=== PATIENT | male | born 1945 | race African-American/Black ===

== ENCOUNTER 2018-03-13 14:17 | Inpatient (IN) | payer OTHER ==
[2018-03-13 17:14] VITALS: BMI 20.8
--- NOTE | 2018-03-13 19:54 | HP ---
COWS - Scale Resting Pulse: 1= MD 81-100 Sweatin= Chills/Flushing Restless Observation: 1= Difficult to Sit Still Pupil Size: 0= Normal to Room Light Bone or Joint Aches: 1= Mild Discomfort Runny Nose/ Eye Tearin= Runny Nose/Eyes GI Upset > 30mins: 2= Nausea/Diarrhea Tremor Observation: 1= Tremor [place], Not Seen Yawning Observation: 1= 1-2x During Session Anxiety or Irritability: 2=Irritable/Anxious Goose Flesh Skin: 3=Piloerection COWS Score: 15 CIWA Score - CIWA Score Nausea/Vomitin-Mild Nausea/No Vomiting Muscle Tremors: 2 Anxiety: 3 Agitation: 4-Moderately Restless Paroxysmal Sweats: 2 Orientation: 1-Uncertain about Date Tacttile Disturbances: 1-Very Mild Itch/Numbness (knuckles and hands) Auditory Disturbances: 0-None Visual Disturbances: 0-None Headache: 2-Mild CIWA-Ar Total Score: 16 Admission [facility] - HPI Chief Complaint: " I am feeling sick , I am here for detox" Allergies/Adverse Reactions: Allergies Allergy/AdvReac Type Severity Reaction Status Date / Time No Known Allergies Allergy Verified 03/13/18 19:58 History of Present Illness: 72 yo male with hx of nicotine, heroin , and alcohol dependence is here seeking detox. PMHX: COPD, anxiety, insomnia. Denies suicidal / homicidal ideation or suicide attempts . Longest period of sobriety 13 months. Last detox [facility] about one year ago. Patient went to [facility] today and no bed were available Exam Limitations: No Limitations - Ebola screening Have you traveled outside of the country in the last 21 days: No Have you had contact with anyone from an Ebola affected area: No Have you been sick,other than usual withdrawal symptoms: No Do you have a fever: No - Review of Systems Constitutional: Chills, Loss of Appetite, Changes in sleep, Unintentional Wgt. Loss (14 lbs over the past 4 months) EENT: reports: Other (glaucoma) Respiratory: reports: Cough, SOB with Exertion (can't go up steps , dx of Emphysema) Cardiac: reports: Chest Tightness (unpredictable) GI: reports: Constipated (lat BVM x 3 days ago), Nausea, Poor Appetite, Poor Fluid Intake : reports: No Symptoms Reported Musculoskeletal: reports: Back Pain (rates pain 7/10) Neuro: reports: Headache, Numbness (both nads and knuckles), Tingling Endocrine: reports: Increased Thirst Hematology: reports: No Symptoms Reported Psychiatric: reports: Orientated x3, Agitated Other Systems: Reviewed and Negative Patient History - Patient Medical History Hx Anemia: No Hx Asthma: No Hx Chronic Obstructive Pulmonary Disease (COPD): Yes (Emphysema MDI ) Hx Cancer: No Hx Cardiac Disorders: No Hx Congestive Heart Failure: No Hx Hypertension: No Hx Hypercholesterolemia: No Hx Pacemaker: No HX Cerebrovascular Accident: No Hx Seizures: No Hx Dementia: No Hx Diabetes: No Hx Gastrointestinal Disorders: No Hx Liver Disease: No Hx Genitourinary Disorders: No Hx Sexually Transmitted Disorders: No Hx Renal Disease (ESRD): No Hx Thyroid Disease: No Hx Human Immunodeficiency Virus (HIV): No (negative, last tested 6 months ago, declines testing today ) Hx Hepatitis C: No Hx Depression: No Hx Suicide Attempt: No Hx Bipolar Disorder: No Hx Schizophrenia: No - Patient Surgical History Past Surgical History: No Hx Neurologic Surgery: No Hx Cataract Extraction: No Hx Cardiac Surgery: No Hx Lung Surgery: No Hx Breast Surgery: No Hx Breast Biopsy: No Hx Abdominal Surgery: No Hx Appendectomy: No Hx Cholecystectomy: No Hx Genitourinary Surgery: No Hx Section: No Hx Orthopedic Surgery: No Hx Hysterectomy: No Anesthesia Reaction: No - PPD History Previous Implant?: Yes Documented Results: Negative w/o proof PPD to be Administered?: Yes - Reproductive History Patient is a Female of Child Bearing Age (11 -55 yrs old): No - Smoking Cessation Smoking history: Current every day smoker Have you smoked in the past 12 months: Yes Aproximately how many cigarettes per day: 5 Hx Chewing Tobacco Use: No Initiated information on smoking cessation: Yes 'Breaking Loose' booklet given: 03/13/18 - Substance & Tx. History Hx Alcohol Use: Yes Hx Substance Use: Yes Substance Use Type: Alcohol, Cocaine Hx Substance Use Treatment: Yes (Last detox [facility] about one year ago.) - Substances Abused Alcohol Route: Oral Frequency: Daily Amount used: 1 pint vodka Age of first use: 14 Date of Last Use: 03/13/18 Heroin Route: Inhalation Frequency: Daily Amount used: 4 bags Age of first use: 18 Date of Last Use: 03/13/18 Family Disease History - Family Disease History Family History: Unable to Obtain (denies parental hx) Admission Physical Exam [facility] - Vital Signs Vital Signs: Vital Signs - 24 hr 03/13/18 17:12 Temperature 95.6 F L Pulse Rate 96 H Respiratory 18 Rate Blood Pressure 126/69 - Physical General Appearance: Yes: Disheveled, Thin, Irritable HEENTM: Yes: EOMI, Hearing grossly Normal, Normal ENT Inspection, Normocephalic , Normal Voice, MARIAM, Pharynx Normal, Tm's normal, Other (poor dentation, dry mucous membranes) Respiratory: Yes: Chest Non-Tender, Lungs Clear, Normal Breath Sounds, No Respiratory Distress, No Accessory Muscle Use Neck: Yes: No masses,lesions,Nodules, Trachea in good position Breast: Yes: Breast Exam Deferred Cardiology: Yes: Regular Rhythm, Regular Rate Abdominal: Yes: Normal Bowel Sounds, Non Tender, Flat, Soft Genitourinary: Yes: Within Normal Limits Back: Yes: Normal Inspection Musculoskeletal: Yes: full range of Motion, Gait Steady, Pelvis Stable, Back pain Extremities: Yes: Normal Capillary Refill, Normal Inspection, Normal Range of Motion, Non-Tender 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 NML intact, Fully Oriented, Alert, Motor Strength 5/5, Depressed Affect Integumentary: Yes: Normal Color, Dry, Warm Lymphatic: Yes: Within Normal Limits - Diagnostic (1) Nicotine dependence Current Visit: Yes Status: Acute Qualifiers: Nicotine product type: cigarettes (2) Alcohol dependence with withdrawal Current Visit: Yes Status: Acute Qualifiers: Complication of substance-induced condition: uncomplicated Qualified Code(s ): F10.230 - Alcohol dependence with withdrawal, uncomplicated (3) Opioid dependence with withdrawal Current Visit: Yes Status: Acute (4) COPD (chronic obstructive pulmonary disease) Current Visit: Yes Status: Acute Qualifiers: COPD type: emphysema Emphysema type: unspecified Qualified Code(s): J43.9 - Emphysema, unspecified (5) Anxious mood Current Visit: Yes Status: Acute Cleared for Admission [facility] - Detox or Rehab [facility] Level of Care: Medically Managed Detox Regimen/Protocol: Methadone/Librium [facility] Breath Alcohol Content Breath Alcohol Content: 0.184 Urine Drug Screen - Results Drug Screen Negative: No Urine Drug Screen Results: THC-Marijuana, OPI-Opiates, MTD-Methadone
[2018-03-13] MEDS ORDERED: MAGNESIUM CITRATE 300 ML BOTTLE PO PRN (20:07)
[2018-03-13] MEDS ORDERED: ACETAMINOPHEN 325 MG TABLET (FP) PO PRN (20:07)
[2018-03-13] MEDS ORDERED: guaiFENesin/D-METHORPHAN HB 10 ML UNIT-DOSE CUPS PO PRN (20:07)
[2018-03-13] MEDS ORDERED: NICOTINE POLACRILEX 2 MG GUM BC PRN (20:07)
[2018-03-13] MEDS ORDERED: MENTHOL/PHENOL 1 EACH UD MM PRN (20:07)
[2018-03-13] MEDS ORDERED: P-EPHED 60MG/TRIPROLIDI 2.5MG TABLET PO PRN (20:07)
[2018-03-13] MEDS ORDERED: MAGNESIUM HYDROX 2400MG/30ML ORAL SUSPENSION 30 ML CUP PO PRN (20:07)
[2018-03-13] MEDS ORDERED: METHADONE HCL 10 MG TABLET (FOR DETOX USE ONLY) PO ONE ×2 (20:07→23:00)
[2018-03-13] MEDS ORDERED: MAG HYDROX/AL HYDROX/SIMETH 30 ML UNIT-DOSE CUP PO PRN (20:07)
[2018-03-13] MEDS ORDERED: chlordiazePOXIDE HCL 25 MG CAPSULE PO ONE (20:07)
[2018-03-13] MEDS ORDERED: LOPERAMIDE HCL 2 MG CAPSULE PO PRN (20:07)
[2018-03-13] MEDS ORDERED: ALBUTEROL SO4 18 GM HFA INHALER IH PRN (20:30)
[2018-03-13] MEDS ORDERED: CYCLOBENZAPRINE HCL 5 MG TABLET PO PRN (20:37)
[2018-03-13] MEDS: LIDOCAINE 5% TOPICAL PATCH TP SCH (21:39)
[2018-03-13] MEDS ORDERED: PATIENT'S OWN MEDICATION (NON-FORMULARY) (Fluticasone Propionate [Flovent Diskus] 250 MCG) IH SCH (22:00)
[2018-03-13] MEDS: THIAMINE HCL 100 MG TABLET (FP) PO SCH (22:18)
[2018-03-13] MEDS: chlordiazePOXIDE HCL 25 MG CAPSULE PO SCH (22:19)
[2018-03-13] MEDS: LIDOCAINE PATCH REMOVAL MC SCH (22:21)
[2018-03-13] MEDS: MELATONIN 5 MG TABLETS PO PRN (22:22)
[2018-03-13 23:06] LABS: URINE APPEARANCE CLOUDY; URINE BILIRUBIN NEGATIVE (<2.0 mg/dL); URINE COLOR DKYELLOW; URINE GLUCOSE (UA) NEGATIVE (NEGATIVE); URINE KETONE NEGATIVE (NEGATIVE); URINE LEUK ESTERASE NEGATIVE (NEGATIVE); URINE NITRITE NEGATIVE (NEGATIVE); URINE PROTEIN NEGATIVE (NEGATIVE); URINE UROBILINOGEN NEGATIVE mg/dL (0.2-1.0)
[2018-03-13] MEDS ORDERED: ALBUTEROL SO4 0.083% IH SOL 2.5 MG/3 ML VIAL.NEB. NEB PRN (23:17)
[2018-03-14] MEDS: chlordiazePOXIDE HCL 25 MG CAPSULE PO SCH ×4 (05:07→22:08)
--- NOTE | 2018-03-14 08:36 | CONSULT ---
[facility] Psychiatric Consult - Data Date of interview: 03/14/18 Admission source: [facility] Identifying data: This is 72 years old male, single, living alone, on SSI, with no psychiatric hospitalization history, seeking for detoxification due to abusing Heroin, Alcohol, Nicotins, reports withdrawal symptoms Substance Abuse History: Smoking history: Current every day smoker. Have you smoked in the past 12 months: Yes. Aproximately how many cigarettes per day: 5. Hx Chewing Tobacco Use: No. Initiated information on smoking cessation: Yes. 'Breaking Loose' booklet given: 03/13/18. - Substance & Tx. History. Hx Alcohol Use: Yes. Hx Substance Use: Yes. Substance Use Type: Alcohol, Cocaine. Hx Substance Use Treatment: Yes (Last detox [facility] about one year ago.). - Substances Abused. Alcohol. Route: Oral. Frequency: Daily. Amount used: 1 pint vodka. Age of first use: 14. Date of Last Use: . Heroin. Route: Inhalation. Frequency: Daily. Amount used: 4 bags. Age of first use: 18. Date of Last Use: 03/13/18 Medical History: COPD Psychiatric History: Denies past pstychiatric history. Denies suicidal, homicidal history and ideation Physical/Sexual Abuse/Trauma History: Denies Additional Comment: Observation. Detox Unit Care Protocol Mental Status Exam - Mental Status Exam Alert and Oriented to: Place, Person Cognitive Function: Fair Patient Appearance: Well Groomed Mood: Sad Affect: Flat Patient Behavior: Cooperative Speech Pattern: Delayed Voice Loudness: Mildly Soft/Quiet Thought Process: Goal Oriented Thought Disorder: Being Controlled Hallucinations: Denies Suicidal Ideation: Denies Homicidal Ideation: Denies Insight/Judgement: Fair Sleep: Difficulty falling asleep Appetite: Weight loss Muscle strength/Tone: Normal Gait/Station: Normal Additional Comments: Observation. Detox Unit Care Protocol Psychiatric Findings - Problem List ([place] 1, 2,3) (1) Drug-induced mood disorder Current Visit: Yes Status: Suspected (2) Alcohol dependence with withdrawal Current Visit: Yes Status: Acute Qualifiers: Complication of substance-induced condition: uncomplicated Qualified Code(s ): F10.230 - Alcohol dependence with withdrawal, uncomplicated (3) Nicotine dependence Current Visit: Yes Status: Acute Qualifiers: Nicotine product type: cigarettes (4) Opioid dependence with withdrawal Current Visit: Yes Status: Acute - Initial Treatment Plan Initial Treatment Plan: Observation. Detox Unit Care Protocol
--- NOTE | 2018-03-14 09:18 | PN ---
S CIWA - CIWA Score Nausea/Vomitin Muscle Tremors: 3 Anxiety: 3 Agitation: 3 Paroxysmal Sweats: 1-Minimal Palms Moist Orientation: 0-Oriented Tacttile Disturbances: 1-Very Mild Itch/Numbness Auditory Disturbances: 1-Very Mild Visual Disturbances: 0-None Headache: 2-Mild CIWA-Ar Total Score: 17 [facility] COWS - Scale Resting Pulse: 0= [place] 80 or Below Sweatin= Chills/Flushing Restless Observation: 3= Extraneous Movement Pupil Size: 1= Pupils >than Normal Bone or Joint Aches: 2= Severe Diffuse Aches Runny Nose/ Eye Tearin= Runny Nose/Eyes GI Upset > 30mins: 2= Nausea/Diarrhea Tremor Observation of Outstretched Hands: 2= Slight Tremor Visible Yawning Observation: 1= 1-2x During Session Anxiety or Irritability: 2=Irritable/Anxious Goose Flesh Skin: 0=Smooth Skin COWS Score: 16 S Progress Note (SOAP) Subjective: ALERT,IRRITABLE,ANXIOUS,INTERRUPTED SLEEP,TREMOR,PAIN IN THE BODY AND BACK Objective: 03/14/18 09:15 Vital Signs Temperature 97.5 F L 03/14/18 06:48 Pulse Rate 71 03/14/18 06:48 Respiratory Rate 18 03/14/18 06:48 Blood Pressure 153/85 03/14/18 06:48 O2 Sat by Pulse Oximetry (%) 03/14/18 09:16 EKG NSR,LOW VOLTAGE,PROLONG QT 388/440 NO CHEST PAIN,NO SOB,NO DIZZINESS Laboratory Last Values Urine Color Dkyellow 03/13/18 22:48 Urine Appearance Cloudy 03/13/18 22:48 Urine pH 5.0 (5.0-8.0) 03/13/18 22:48 Ur Specific [place] 1.025 (1.001-1.035) 03/13/18 22:48 Urine Protein Negative (NEGATIVE) 03/13/18 22:48 Urine Glucose (UA) Negative (NEGATIVE) 03/13/18 22:48 Urine Ketones Negative (NEGATIVE) 03/13/18 22:48 Urine Blood Negative (NEGATIVE) 03/13/18 22:48 Urine Nitrite Negative (NEGATIVE) 03/13/18 22:48 Urine Bilirubin Negative (<2.0 mg/dL) 03/13/18 22:48 Urine Urobilinogen Negative mg/dL (0.2-1.0) 03/13/18 22:48 Ur Leukocyte Esterase Negative (NEGATIVE) 03/13/18 22:48 LABS PENDING Assessment: 03/14/18 09:18 WITHDRAWAL SYMPTOM Plan: CONTINUE DETOX
[2018-03-14] MEDS ORDERED: METHADONE HCL 10 MG TABLET (FOR DETOX USE ONLY) PO SCH (10:00)
[2018-03-14] MEDS: PRENATAL VITAMINS W/ FOLIC ACID TABLET (FP) PO SCH (10:08)
[2018-03-14] MEDS: cloNIDine HCL 0.1 MG TABLET PO SCH ×2 (10:11→22:08)
[2018-03-14] MEDS: LIDOCAINE 5% TOPICAL PATCH TP SCH (10:12)
[2018-03-14] MEDS: NICOTINE 14 MG/24 HOURS TOPICAL PATCH TD SCH ×2 (10:12→11:11)
[2018-03-14 11:21] LABS: HEMATOCRIT 40.3 % (35.4-49); HEMOGLOBIN 13.1 GM/dL (11.7-16.9); MCH 28.4 pg (25.7-33.7); MCHC 32.6 g/dl (32.0-35.9); MEAN CELL VOLUME 86.9 fl (80-96); MEAN PLT VOLUME 9.1 fl (7.5-11.1); PLATELET COUNT 285 K/MM3 (134-434); RBC 4.63 M/mm3 (4.00-5.60); WHITE BLOOD COUNT 3.4 K/mm3 (4.0-10.0)
--- NOTE | 2018-03-14 11:25 | EKG ---
Test Reason : Blood Pressure : / mmHG Vent. Rate : 075 BPM Atrial Rate : 075 BPM P-R Int : 174 ms QRS Dur : 102 ms QT Int : 372 ms P-R-T Axes : 081 -53 087 degrees QTc Int : 415 ms NORMAL SINUS RHYTHM POSSIBLE LEFT ATRIAL ENLARGEMENT LEFT AXIS DEVIATION LOW VOLTAGE QRS INCOMPLETE RIGHT BUNDLE BRANCH BLOCK SEPTAL INFARCT , AGE UNDETERMINED ABNORMAL ECG WHEN COMPARED WITH ECG OF 13-MAR-2018 21:47, INCOMPLETE RIGHT BUNDLE BRANCH BLOCK IS NOW PRESENT SEPTAL INFARCT IS NOW PRESENT Confirmed by SILVINO LONG MD ([id number]) on 03/14/2018 11:24:37 AM Referred By: Confirmed By:SILVINO LONG MD
[2018-03-14 11:26] LABS: CHLORIDE 108 mmol/L (98-107); POTASSIUM 4.1 mmol/L (3.5-5.1); SODIUM 142 mmol/L (136-145)
[2018-03-14 11:35] LABS: ALBUMIN 3.2 g/dl (3.4-5.0); ALK PHOS 64 U/L (45-117); ANION GAP 6 (8-16); BILIRUBIN,TOTAL 0.7 mg/dL (0.2-1.0); BLOOD UREA NITROGEN 18 mg/dL (7-18); CALCIUM 8.6 mg/dL (8.5-10.1); CO2 28 mmol/L (21-32); GLUCOSE,RANDOM 74 mg/dL (74-106); SGOT/AST 9 U/L (15-37); SGPT/ALT 11 U/L (12-78); TOT PROT 6.7 g/dl (6.4-8.2)
[2018-03-14] MEDS: BUDESONIDE/FORMETEROL FUMARATE 160/4.5 mcg INHALER IH SCH ×2 (13:20→22:09)
[2018-03-14] MEDS: HYDROCORTISONE 1% TOPICAL CREAM 30 GM TUBE TP SCH ×2 (13:21→22:08)
[2018-03-14] MEDS: chlordiazePOXIDE HCL 25 MG CAPSULE PO PRN (14:12)
[2018-03-14] MEDS: CYCLOBENZAPRINE HCL 10 MG TABLET (FP) PO PRN (18:10)
[2018-03-14] MEDS: IBUPROFEN 400 MG TABLET (FP) PO PRN (18:10)
[2018-03-14] MEDS: THIAMINE HCL 100 MG TABLET (FP) PO SCH (22:09)
[2018-03-14] MEDS: LIDOCAINE PATCH REMOVAL MC SCH (22:09)
[2018-03-14] MEDS: MELATONIN 5 MG TABLETS PO PRN (22:18)
[2018-03-15] MEDS: chlordiazePOXIDE HCL 25 MG CAPSULE PO SCH ×3 (05:45→16:59)
[2018-03-15] MEDS: HYDROCORTISONE 1% TOPICAL CREAM 30 GM TUBE TP SCH ×3 (05:46→22:16)
[2018-03-15] MEDS: cloNIDine HCL 0.1 MG TABLET PO SCH ×2 (11:10→22:15)
[2018-03-15] MEDS: METHADONE HCL 5 MG TABLET (FOR DETOX USE ONLY) PO SCH (11:10)
[2018-03-15] MEDS: PRENATAL VITAMINS W/ FOLIC ACID TABLET (FP) PO SCH (11:11)
[2018-03-15] MEDS: LIDOCAINE 5% TOPICAL PATCH TP SCH (11:11)
[2018-03-15] MEDS: NICOTINE 14 MG/24 HOURS TOPICAL PATCH TD SCH (11:11)
[2018-03-15] MEDS: BUDESONIDE/FORMETEROL FUMARATE 160/4.5 mcg INHALER IH SCH ×2 (11:12→22:19)
--- NOTE | 2018-03-15 11:50 | PN ---
[facility] CIWA - CIWA Score Nausea/Vomitin Muscle Tremors: 3 Anxiety: 3 Agitation: 2 Paroxysmal Sweats: 1-Minimal Palms Moist Orientation: 0-Oriented Tacttile Disturbances: 1-Very Mild Itch/Numbness Auditory Disturbances: 1-Very Mild Visual Disturbances: 0-None Headache: 2-Mild CIWA-Ar Total Score: 16 [facility] COWS - Scale Resting Pulse: 0= NE 80 or Below Sweatin= Chills/Flushing Restless Observation: 3= Extraneous Movement Pupil Size: 1= Pupils >than Normal Bone or Joint Aches: 2= Severe Diffuse Aches Runny Nose/ Eye Tearin= Runny Nose/Eyes GI Upset > 30mins: 2= Nausea/Diarrhea Tremor Observation of Outstretched Hands: 2= Slight Tremor Visible Yawning Observation: 1= 1-2x During Session Anxiety or Irritability: 2=Irritable/Anxious Goose Flesh Skin: 0=Smooth Skin COWS Score: 16 [facility] Progress Note (SOAP) Subjective: ALERT,IRRITABLE,ANXIOUS,INTERRUPTED SLEEP,TREMOR,COUGHING WITH YELLOWISH MUCOUS Objective: 03/15/18 11:47 Vital Signs Temperature 97.0 F L 03/15/18 09:46 Pulse Rate 69 03/15/18 09:46 Respiratory Rate 18 03/15/18 09:46 Blood Pressure 126/80 03/15/18 09:46 O2 Sat by Pulse Oximetry (%) Laboratory Last Values WBC 3.4 K/mm3 (4.0-10.0) L 03/14/18 07:30 RBC 4.63 M/mm3 (4.00-5.60) 03/14/18 07:30 Hgb 13.1 GM/dL (11.7-16.9) 03/14/18 07:30 Hct 40.3 % (35.4-49) 03/14/18 07:30 MCV 86.9 fl (80-96) 03/14/18 07:30 MCH 28.4 pg (25.7-33.7) 03/14/18 07:30 MCHC 32.6 g/dl (32.0-35.9) 03/14/18 07:30 RDW 15.0 % (11.9-15.9) 03/14/18 07:30 Plt Count 285 K/MM3 (134-434) 03/14/18 07:30 MPV 9.1 fl (7.5-11.1) 03/14/18 07:30 Sodium 142 mmol/L (136-145) 03/14/18 07:30 Potassium 4.1 mmol/L (3.5-5.1) 03/14/18 07:30 Chloride 108 mmol/L (98-107) H 03/14/18 07:30 Carbon Dioxide 28 mmol/L (21-32) 03/14/18 07:30 Anion Gap 6 (8-16) L 03/14/18 07:30 BUN 18 mg/dL (7-18) 03/14/18 07:30 Creatinine 1.0 mg/dL (0.7-1.3) 03/14/18 07:30 Creat Clearance w eGFR > 60 (>60) 03/14/18 07:30 Random Glucose 74 mg/dL (74-106) 03/14/18 07:30 Calcium 8.6 mg/dL (8.5-10.1) 03/14/18 07:30 Total Bilirubin 0.7 mg/dL (0.2-1.0) 03/14/18 07:30 AST 9 U/L (15-37) L 03/14/18 07:30 ALT 11 U/L (12-78) L 03/14/18 07:30 Alkaline Phosphatase 64 U/L (45-117) 03/14/18 07:30 Total Protein 6.7 g/dl (6.4-8.2) 03/14/18 07:30 Albumin 3.2 g/dl (3.4-5.0) L 03/14/18 07:30 Urine Color Dkyellow 03/13/18 22:48 Urine Appearance Cloudy 03/13/18 22:48 Urine pH 5.0 (5.0-8.0) 03/13/18 22:48 Ur Specific [place] 1.025 (1.001-1.035) 03/13/18 22:48 Urine Protein Negative (NEGATIVE) 03/13/18 22:48 Urine Glucose (UA) Negative (NEGATIVE) 03/13/18 22:48 Urine Ketones Negative (NEGATIVE) 03/13/18 22:48 Urine Blood Negative (NEGATIVE) 03/13/18 22:48 Urine Nitrite Negative (NEGATIVE) 03/13/18 22:48 Urine Bilirubin Negative (<2.0 mg/dL) 03/13/18 22:48 Urine Urobilinogen Negative mg/dL (0.2-1.0) 03/13/18 22:48 Ur Leukocyte Esterase Negative (NEGATIVE) 03/13/18 22:48 RPR Titer Nonreactive (NONREACTIVE) 03/14/18 07:30 Assessment: 03/15/18 11:48 ACUTE BRONCHITIS 03/15/18 11:48 WITHDRAWAL SYMPTOM Plan: CONTINUE DETOX,AMOXICILLIN 500 MGS PO TID FOR 7 DAYS FOR ACUTE BRONCHITIS
[2018-03-15] MEDS: chlordiazePOXIDE HCL 25 MG CAPSULE PO PRN (12:40)
[2018-03-15] MEDS: AMOXICILLIN 500 MG CAPSULE (FP) PO SCH ×2 (14:16→22:15)
[2018-03-15] MEDS: IBUPROFEN 400 MG TABLET (FP) PO PRN (16:57)
[2018-03-15] MEDS: THIAMINE HCL 100 MG TABLET (FP) PO SCH (22:15)
[2018-03-15] MEDS: chlordiazePOXIDE 5 MG CAPSULE PO SCH (22:15)
[2018-03-15] MEDS: LIDOCAINE PATCH REMOVAL MC SCH (22:16)
[2018-03-15] MEDS: hydrOXYzine PAMOATE 50 MG CAPSULE (FP) PO PRN (22:17)
[2018-03-16] MEDS: chlordiazePOXIDE HCL 25 MG CAPSULE PO PRN (02:52)
[2018-03-16] MEDS: chlordiazePOXIDE 5 MG CAPSULE PO SCH ×3 (05:41→17:40)
[2018-03-16] MEDS: HYDROCORTISONE 1% TOPICAL CREAM 30 GM TUBE TP SCH ×3 (05:43→23:32)
[2018-03-16] MEDS: AMOXICILLIN 500 MG CAPSULE (FP) PO SCH ×3 (05:43→22:24)
[2018-03-16] MEDS: LIDOCAINE 5% TOPICAL PATCH TP SCH (10:02)
[2018-03-16] MEDS: PRENATAL VITAMINS W/ FOLIC ACID TABLET (FP) PO SCH (10:02)
[2018-03-16] MEDS: cloNIDine HCL 0.1 MG TABLET PO SCH ×2 (10:02→22:25)
[2018-03-16] MEDS: METHADONE HCL 5 MG TABLET (FOR DETOX USE ONLY) PO SCH (10:02)
[2018-03-16] MEDS: NICOTINE 14 MG/24 HOURS TOPICAL PATCH TD SCH (10:03)
[2018-03-16] MEDS: BUDESONIDE/FORMETEROL FUMARATE 160/4.5 mcg INHALER IH SCH ×2 (10:03→23:32)
--- NOTE | 2018-03-16 11:18 | PN ---
[facility] Progress Note (SOAP) Subjective: Sweats shakes low back ache Objective: 03/16/18 11:12 A & O x 3 Ambulates Vital Signs Temperature 96.8 F L 03/16/18 09:30 Pulse Rate 69 03/16/18 09:30 Respiratory Rate 16 03/16/18 09:30 Blood Pressure 141/76 03/16/18 09:30 O2 Sat by Pulse Oximetry (%) Assessment: 03/16/18 11:12 Withdrawal symptoms Plan: continue detox
[2018-03-16] MEDS: CYCLOBENZAPRINE HCL 10 MG TABLET (FP) PO PRN ×2 (11:19→17:42)
[2018-03-16] MEDS: hydrOXYzine PAMOATE 50 MG CAPSULE (FP) PO PRN ×3 (12:38→22:27)
[2018-03-16] MEDS: THIAMINE HCL 100 MG TABLET (FP) PO SCH (22:25)
[2018-03-16] MEDS: chlordiazePOXIDE HCL 10 MG CAPSULE PO SCH (22:25)
[2018-03-16] MEDS: MELATONIN 5 MG TABLETS PO PRN (22:27)
[2018-03-16] MEDS: LIDOCAINE PATCH REMOVAL MC SCH (23:32)
[2018-03-17] MEDS: chlordiazePOXIDE HCL 10 MG CAPSULE PO SCH ×3 (06:10→17:52)
[2018-03-17] MEDS: HYDROCORTISONE 1% TOPICAL CREAM 30 GM TUBE TP SCH ×3 (06:10→22:02)
[2018-03-17] MEDS: AMOXICILLIN 500 MG CAPSULE (FP) PO SCH ×3 (06:10→22:03)
[2018-03-17] MEDS ORDERED: METHADONE HCL 10 MG TABLET (FOR DETOX USE ONLY) PO SCH (10:00)
[2018-03-17] MEDS: PRENATAL VITAMINS W/ FOLIC ACID TABLET (FP) PO SCH (10:07)
[2018-03-17] MEDS: LIDOCAINE 5% TOPICAL PATCH TP SCH (10:07)
[2018-03-17] MEDS: cloNIDine HCL 0.1 MG TABLET PO SCH ×2 (10:08→22:03)
[2018-03-17] MEDS: NICOTINE 14 MG/24 HOURS TOPICAL PATCH TD SCH (10:08)
[2018-03-17] MEDS: BUDESONIDE/FORMETEROL FUMARATE 160/4.5 mcg INHALER IH SCH ×2 (10:08→22:03)
[2018-03-17] MEDS: CYCLOBENZAPRINE HCL 10 MG TABLET (FP) PO PRN ×2 (10:12→22:05)
--- NOTE | 2018-03-17 11:55 | PN ---
[facility] Progress Note (SOAP) Subjective: feeling better denies pain no tremor less sweat sleep better Objective: 03/17/18 11:55 Vital Signs Temperature 97.5 F L 03/17/18 09:52 Pulse Rate 88 03/17/18 09:52 Respiratory Rate 18 03/17/18 09:52 Blood Pressure 129/77 03/17/18 09:52 O2 Sat by Pulse Oximetry (%) Laboratory Last Values WBC 3.4 K/mm3 (4.0-10.0) L 03/14/18 07:30 RBC 4.63 M/mm3 (4.00-5.60) 03/14/18 07:30 Hgb 13.1 GM/dL (11.7-16.9) 03/14/18 07:30 Hct 40.3 % (35.4-49) 03/14/18 07:30 MCV 86.9 fl (80-96) 03/14/18 07:30 MCH 28.4 pg (25.7-33.7) 03/14/18 07:30 MCHC 32.6 g/dl (32.0-35.9) 03/14/18 07:30 RDW 15.0 % (11.9-15.9) 03/14/18 07:30 Plt Count 285 K/MM3 (134-434) 03/14/18 07:30 MPV 9.1 fl (7.5-11.1) 03/14/18 07:30 Sodium 142 mmol/L (136-145) 03/14/18 07:30 Potassium 4.1 mmol/L (3.5-5.1) 03/14/18 07:30 Chloride 108 mmol/L (98-107) H 03/14/18 07:30 Carbon Dioxide 28 mmol/L (21-32) 03/14/18 07:30 Anion Gap 6 (8-16) L 03/14/18 07:30 BUN 18 mg/dL (7-18) 03/14/18 07:30 Creatinine 1.0 mg/dL (0.7-1.3) 03/14/18 07:30 Creat Clearance w eGFR > 60 (>60) 03/14/18 07:30 Random Glucose 74 mg/dL (74-106) 03/14/18 07:30 Calcium 8.6 mg/dL (8.5-10.1) 03/14/18 07:30 Total Bilirubin 0.7 mg/dL (0.2-1.0) 03/14/18 07:30 AST 9 U/L (15-37) L 03/14/18 07:30 ALT 11 U/L (12-78) L 03/14/18 07:30 Alkaline Phosphatase 64 U/L (45-117) 03/14/18 07:30 Total Protein 6.7 g/dl (6.4-8.2) 03/14/18 07:30 Albumin 3.2 g/dl (3.4-5.0) L 03/14/18 07:30 Urine Color Dkyellow 03/13/18 22:48 Urine Appearance Cloudy 03/13/18 22:48 Urine pH 5.0 (5.0-8.0) 03/13/18 22:48 Ur Specific [place] 1.025 (1.001-1.035) 03/13/18 22:48 Urine Protein Negative (NEGATIVE) 03/13/18 22:48 Urine Glucose (UA) Negative (NEGATIVE) 03/13/18 22:48 Urine Ketones Negative (NEGATIVE) 03/13/18 22:48 Urine Blood Negative (NEGATIVE) 03/13/18 22:48 Urine Nitrite Negative (NEGATIVE) 03/13/18 22:48 Urine Bilirubin Negative (<2.0 mg/dL) 03/13/18 22:48 Urine Urobilinogen Negative mg/dL (0.2-1.0) 03/13/18 22:48 Ur Leukocyte Esterase Negative (NEGATIVE) 03/13/18 22:48 RPR Titer Nonreactive (NONREACTIVE) 03/14/18 07:30 lab noted Assessment: 03/17/18 11:55 mild withdrawal sx Plan: medically supervised detox
[2018-03-17] MEDS: LIDOCAINE PATCH REMOVAL MC SCH (22:03)
[2018-03-17] MEDS: THIAMINE HCL 100 MG TABLET (FP) PO SCH (22:04)
[2018-03-17] MEDS: MELATONIN 5 MG TABLETS PO PRN (22:05)
[2018-03-18] MEDS: AMOXICILLIN 500 MG CAPSULE (FP) PO SCH (05:24)
[2018-03-18] MEDS: HYDROCORTISONE 1% TOPICAL CREAM 30 GM TUBE TP SCH (05:26)
[2018-03-18] MEDS ORDERED: METHADONE HCL 5 MG TABLET (FOR DETOX USE ONLY) PO SCH (06:00)
--- NOTE | 2018-03-18 08:26 | PN ---
S Progress Note (SOAP) Subjective: ALERT,NO COMPLAINT Objective: 03/18/18 08:25 Vital Signs Temperature 95.5 F L 03/18/18 05:00 Pulse Rate 75 03/18/18 05:00 Respiratory Rate 18 03/18/18 05:00 Blood Pressure 130/80 03/18/18 05:00 O2 Sat by Pulse Oximetry (%) Assessment: 03/18/18 08:25 DETOX COMPLETED,NO WITHDRAWAL SYMPTOM Plan: DISCHARGE TODAY,FOLLOW UP WITH AFTER CARE PROGRAM ARRANGEMENT
--- NOTE | 2018-03-18 08:32 | DS ---
[facility] Detox Discharge Summary Admission Date: 03/13/18 Discharge Date: 03/18/18 - History Present History: Alcohol Dependence, Opioid Dependence Additional Comments: FOLLOW UP WITH AFTER CARE PROGRAM ARRANGEMENT Pertinent Past History: COPD NICOTINE DEPENDENCE - Physical Exam Results Vital Signs: Vital Signs Temperature 95.5 F L 03/18/18 05:00 Pulse Rate 75 03/18/18 05:00 Respiratory Rate 18 03/18/18 05:00 Blood Pressure 130/80 03/18/18 05:00 O2 Sat by Pulse Oximetry (%) Pertinent Admission Physical Exam Findings: WITHDRAWAL SIGNS AND SYMPTOM Laboratory Last Values WBC 3.4 K/mm3 (4.0-10.0) L 03/14/18 07:30 RBC 4.63 M/mm3 (4.00-5.60) 03/14/18 07:30 Hgb 13.1 GM/dL (11.7-16.9) 03/14/18 07:30 Hct 40.3 % (35.4-49) 03/14/18 07:30 MCV 86.9 fl (80-96) 03/14/18 07:30 MCH 28.4 pg (25.7-33.7) 03/14/18 07:30 MCHC 32.6 g/dl (32.0-35.9) 03/14/18 07:30 RDW 15.0 % (11.9-15.9) 03/14/18 07:30 Plt Count 285 K/MM3 (134-434) 03/14/18 07:30 MPV 9.1 fl (7.5-11.1) 03/14/18 07:30 Sodium 142 mmol/L (136-145) 03/14/18 07:30 Potassium 4.1 mmol/L (3.5-5.1) 03/14/18 07:30 Chloride 108 mmol/L (98-107) H 03/14/18 07:30 Carbon Dioxide 28 mmol/L (21-32) 03/14/18 07:30 Anion Gap 6 (8-16) L 03/14/18 07:30 BUN 18 mg/dL (7-18) 03/14/18 07:30 Creatinine 1.0 mg/dL (0.7-1.3) 03/14/18 07:30 Creat Clearance w eGFR > 60 (>60) 03/14/18 07:30 Random Glucose 74 mg/dL (74-106) 03/14/18 07:30 Calcium 8.6 mg/dL (8.5-10.1) 03/14/18 07:30 Total Bilirubin 0.7 mg/dL (0.2-1.0) 03/14/18 07:30 AST 9 U/L (15-37) L 03/14/18 07:30 ALT 11 U/L (12-78) L 03/14/18 07:30 Alkaline Phosphatase 64 U/L (45-117) 03/14/18 07:30 Total Protein 6.7 g/dl (6.4-8.2) 03/14/18 07:30 Albumin 3.2 g/dl (3.4-5.0) L 03/14/18 07:30 Urine Color Dkyellow 03/13/18 22:48 Urine Appearance Cloudy 03/13/18 22:48 Urine pH 5.0 (5.0-8.0) 03/13/18 22:48 Ur Specific [place] 1.025 (1.001-1.035) 03/13/18 22:48 Urine Protein Negative (NEGATIVE) 03/13/18 22:48 Urine Glucose (UA) Negative (NEGATIVE) 03/13/18 22:48 Urine Ketones Negative (NEGATIVE) 03/13/18 22:48 Urine Blood Negative (NEGATIVE) 03/13/18 22:48 Urine Nitrite Negative (NEGATIVE) 03/13/18 22:48 Urine Bilirubin Negative (<2.0 mg/dL) 03/13/18 22:48 Urine Urobilinogen Negative mg/dL (0.2-1.0) 03/13/18 22:48 Ur Leukocyte Esterase Negative (NEGATIVE) 03/13/18 22:48 RPR Titer Nonreactive (NONREACTIVE) 03/14/18 07:30 Vital Signs Temperature 95.5 F L 03/18/18 05:00 Pulse Rate 75 03/18/18 05:00 Respiratory Rate 18 03/18/18 05:00 Blood Pressure 130/80 03/18/18 05:00 O2 Sat by Pulse Oximetry (%) - Treatment Hospital Course: Detox Protocol Followed, Detoxed Safely, Responded well, Discharged Condition Good, Rehab Referral Accepted Patient has Accepted a Rehab Referral to: [facility] - Medication Discharge Medications: Ambulatory Orders Fluticasone Propionate [Flovent Diskus] 250 mcg IH BID 03/13/18 Albuterol Sulfate Inhaler - [Ventolin HFA Inhaler -] 90 mcg IH Q4H #1 inhaler - Diagnosis (1) Opioid dependence with withdrawal Current Visit: Yes Status: Acute (2) Alcohol dependence with withdrawal Current Visit: Yes Status: Acute Qualifiers: Complication of substance-induced condition: uncomplicated Qualified Code(s ): F10.230 - Alcohol dependence with withdrawal, uncomplicated (3) COPD (chronic obstructive pulmonary disease) Current Visit: Yes Status: Acute Qualifiers: COPD type: emphysema Emphysema type: unspecified Qualified Code(s): J43.9 - Emphysema, unspecified (4) Nicotine dependence Current Visit: Yes Status: Acute Qualifiers: Nicotine product type: cigarettes (5) Drug-induced mood disorder Current Visit: Yes Status: Suspected (6) Acute bronchitis Current Visit: Yes Status: Acute - AMA Did Patient Leave Against Medical Advice: No
[2018-03-18 09:30] VITALS: BP 155/86; PULSE 86; TEMP 97
== END 2018-03-18 09:00 | disposition home or self-care (01) | DRG 897 ==
LOC: YASAS 14:17 → Y6N 21:03
PROVIDERS: ADMIT Internal Medicine; ATTEND Internal Medicine
PROC: HZ2ZZZZ Detoxification Services for Substance Abuse Treatment (ICD-10-PCS; principal; 2018-03-13)
DX: F11.23 Opioid dependence with withdrawal (principal); F10.230 Alcohol dependence with withdrawal, uncomplicated; F17.210 Nicotine dependence, cigarettes, uncomplicated; F19.24 Other psychoactive substance dependence with psychoactive substance-induced mood disorder; F41.9 Anxiety disorder, unspecified; F43.9 Reaction to severe stress, unspecified; J20.9 Acute bronchitis, unspecified; M54.5 Low back pain
CPT/HCPCS: 36415; 80053; 81003; 85027; 86593; 93005; 93010; J0735